=== PATIENT | male | born 1960 | race African-American/Black ===

== ENCOUNTER 2016-09-22 14:47 | Inpatient (IN) ==
[2016-09-22] MEDS ORDERED: GLUCAGON 1 MG VIAL IM PRN (17:12)
[2016-09-22] MEDS ORDERED: DEXTROSE 50% 25 GM/50 ML VIAL IV PRN (17:12)
[2016-09-22] MEDS ORDERED: PIPERACILLIN/TAZOBACTAM 3,375 MG in SODIUM CHLORIDE 0.9% 100 ML IV SCH (17:30)
[2016-09-22] MEDS: PIPERACILLIN/TAZOBACTAM 3,375 MG in SODIUM CHLORIDE 0.9% 100 ML IV SCH (18:11)
[2016-09-22] MEDS: INSULIN REGULAR 100 UNIT/ML SUBCUT SCH (21:17)
[2016-09-23] MEDS: PIPERACILLIN/TAZOBACTAM 3,375 MG in SODIUM CHLORIDE 0.9% 100 ML IV SCH ×3 (02:57→17:54)
[2016-09-23 06:43] LABS: Basophils % 0.4 % (0.0-0.8); Eosinophils # 0.1 10*3/uL (0.0-0.87); Eosinophils % 1.2 % (0.00-10.9); Hematocrit 29.1 VOL% (42.0-52.0); Hemoglobin 9.3 GM/DL (14.0-18.0); Immature Granulocytes % 0.5 %; Immature Granulocytes Absolute 0.04 #; Lymphocytes # 1.1 10*3/uL (1.4-4.0); Lymphocytes % 14.7 % (21.2-54.2); Mean Corpuscular Hemoglobin 27 PG (27-34); Mean Corpuscular Volume 83.4 FL (87-102); Mean Platelet Volume 8.7 FL (9.6-12.0); Monocytes # 0.8 10*3/uL (0.11-0.8); Monocytes % 10.7 % (1.7-12.7); Neutrophils # 5.3 10*3/uL (1.4-7.4); Neutrophils % 72.5 % (38.7-73.9); Platelet Count 228 T/CUMM (130-400); Red Blood Count 3.49 MC/CUMM (3.8-5.5); Red Cell Distribution Width 13.1 % (9.3-17.3); White Blood Count 7.4 T/CUMM (4-12)
[2016-09-23 06:51] LABS: Hypochromasia 1+
[2016-09-23 07:46] LABS: Albumin 2.7 G/DL (3.4-5.0); Bilirubin,Total 0.8 MG/DL (0.2-1.0); Calcium 8.1 MG/DL (8.5-10.1); Potassium 4.4 MMOL/L (3.5-5.1); Total Protein 6.9 G/DL (6.4-8.3)
--- NOTE | 2016-09-23 07:53 | EKG Report ---
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
[2016-09-23] MEDS: INSULIN REGULAR 100 UNIT/ML SUBCUT SCH ×3 (09:47→18:07)
--- NOTE | 2016-09-23 09:47 | General Surgery Progress Note ---
Assessment and Plan - Time spent with patient Time spent with patient: Less than 30 minutes (1) Chronic toe ulcer Status: Acute Assessment and plan: This toe appears to be nonsalvageable. We have plans for amputation this is delayed this morning because of new onset atrial fibrillation with a rapid ventricular response. We'll consult cardiology. Current Visit: Yes Qualifiers: Laterality: unspecified laterality Non-pressure ulcer stage: with fat layer exposed Qualified Code(s): L97.502 - Non-pressure chronic ulcer of other part of unspecified foot with fat layer exposed (2) Atrial flutter by electrocardiogram Status: Acute Assessment and plan: This significance of this is unclear and the patient appears asymptomatic. We will consult cardiology. We will delay his surgery this morning. I will be out of town but I discussed this case with Dr. Bond who is covering for me this weekend and if he is cleared from a cardiology standpoint he can proceed on with amputation. This was discussed with the family as well. Current Visit: Yes Subjective Patient reports: Present: feels better, afebrile. Absent: still having pain, nausea, vomiting Exam - Constitutional Vitals: Period Temp Pulse Resp BP Sys/Mcneil Pulse Ox Last 24 Hr 98.1 F-100.8 F 102-122 16-20 132-153/76-91 93-98 General appearance: no acute distress - Head Head exam: Present: normocephalic - Eye Eye exam: Absent: scleral icterus - Respiratory Respiratory exam: Absent: accessory muscle use - Extremities Exam Extremities exam: Present: other (his toe is unchanged. There is no signs of cellulitis in his foot.). Absent: edema Results - Labs CBC & BMP: 09/23/16 06:14 09/23/16 06:14 Lab Results: I have reviewed the past 24 hour labs Quality Measures - VTE Contraindication to Mechanical VTE Prophylaxis: Local Inflammation
[2016-09-23] MEDS ORDERED: ALBUTEROL 2.5 MG/3 ML NEB RESP TX PRN (11:11)
[2016-09-23] MEDS ORDERED: ONDANSETRON 4 MG/2 ML VIAL IV PRN (11:16)
[2016-09-23] MEDS: amLODIPine 10 MG TABLET PO SCH (12:51)
[2016-09-23] MEDS: SODIUM CHLORIDE 0.9% 1,000 ML IV SCH (13:50)
[2016-09-23] MEDS: CYCLOBENZAPRINE 10 MG TABLET PO SCH ×2 (14:13→20:56)
[2016-09-23] MEDS ORDERED: GLUCAGON 1 MG VIAL IM PRN (14:24)
[2016-09-23] MEDS ORDERED: DEXTROSE 50% 25 GM/50 ML VIAL IV PRN (14:24)
[2016-09-23] MEDS ORDERED: ENOXAPARIN 30 MG/0.3 ML SYRINGE SUBCUT STA (14:24)
[2016-09-23] MEDS: CARVEDILOL 3.125 MG TABLET PO SCH ×2 (14:34→20:56)
--- NOTE | 2016-09-23 15:07 | Cardiology Consult Note ---
Malik Burton April, RN, am scribing for, and in the presence of, Richard Rowland MD 15:03. Assessment and Plan - Time spent with patient Time spent with patient: Greater than 30 minutes (Due to assessment, planning, documentation, medication review) (1) Atrial flutter by electrocardiogram Status: Acute Current Visit: Yes (2) Hypertension Status: Chronic Assessment and plan: 1. 56-year-old overweight BM with hypertension, dyslipidemia, IDDM, status post left BKA remotely, now with nonhealing right foot ulcer and fever associated with secondary mild sinus tachycardia; he is plan for toe amputation this morning which is delayed due to his abnormal EKG. 2. EKG was read as atrial flutter by the computer; it is really mild sinus tachycardia only 3. Recommend changing to high-intensity statin therapy given his PAD history 4. No further recommendations, as he has no cardiac history, does not seem to have angina or heart failure symptoms 5. We'll sign off, please call if needed prior to discharge Current Visit: Yes (3) IDDM (insulin dependent diabetes mellitus) Status: Chronic Current Visit: Yes (4) Dyslipidemia Status: Chronic Current Visit: Yes (5) GERD (gastroesophageal reflux disease) Status: Chronic Current Visit: Yes (6) Chronic toe ulcer Status: Acute Current Visit: Yes Qualifiers: Laterality: unspecified laterality Non-pressure ulcer stage: with fat layer exposed Qualified Code(s): L97.502 - Non-pressure chronic ulcer of other part of unspecified foot with fat layer exposed History of Present Illness - Data of Consult Consult date: 09/23/16 Requesting Physician: Shelton Garcia Jr. - Consult Narrative Reason for consult: Atrial flutter/Tachycardia with RVR History of present illness: Mr. 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 He has a history of IDDM, hypertension, dyslipidemia, and GERD. Surgical history includes left BKA and a right thigh. Family history includes sister with diabetes and hypertension, mother with diabetes and Alzheimer's, and father with lung cancer. He reports he is a lifetime non-smoker. Mr. Wayne has had an ulcer to his right great toe that has been treated by wound care. He tells me they released him 3 weeks ago and he did some yard work and since then it has gotten progressively worse. He was admitted today for amputation of the right big toe, but EKG revealed atrial flutter/ tachycardia with RVR with a rate of 108. Surgery was canceled and cardiology was asked to evaluate. He denies any chest pain, shortness of breath, palpitations, or dizziness. Except for problems related to his toes, he reports he has been in his usual state of health with no complaints. He is not aware of having any rhythm problems in the past. He is not sure if he ever had an EKG, he said he possibly had one several years ago but is not sure where it was done. His blood pressures been up slightly, the most recent being 141/90. His potassium is 4.4, magnesium has not been checked so we will check. Creatinine is elevated at 1.4. He is not aware of having any bleeding problems , but he does tell me that he occasionally has bright red blood in his stool. CC: Kaushik Garcia III., - Home Medications and Allergies Home Medications: Home Medications Medication Instructions Recorded Confirmed Type Albuterol Sulfate [Ventolin HFA] 2 puff INH Q4H PRN 09/22/16 09/22/16 History Aspirin [Aspirin EC] 81 mg PO DAILY 09/22/16 09/22/16 History Cyclobenzaprine [Flexeril] 10 mg PO BID 09/22/16 09/22/16 History Esomeprazole Magnesium [Nexium] 20 mg PO DAILY 09/22/16 09/22/16 History Gabapentin 300 mg PO TID 09/22/16 09/22/16 History Losartan/Hydrochlorothiazide 1 each PO DAILY 09/22/16 09/22/16 History [Losartan-Hctz 100-12.5 mg Tab] Lovastatin 10 mg PO DAILY 09/22/16 09/22/16 History Metformin HCl 1,000 mg PO BID 09/22/16 09/22/16 History Zolpidem [Ambien] 5 mg PO BEDTIME 09/22/16 09/22/16 History amLODIPine [Norvasc] 10 mg PO DAILY 09/22/16 09/22/16 History glipiZIDE [Glipizide] 10 mg PO BID 09/22/16 09/22/16 History Allergies/Adverse Reactions: Allergies Allergy/AdvReac Type Severity Reaction Status Date / Time iodine Allergy Intermediate RASH Verified 09/22/16 16:49 - Constitutional Constitutional: Present: as per HPI - EENT Eyes: Present: blurry vision, loss of vision Ears: Absent: decreased hearing, tinnitus Nose, mouth and throat: Present: headache(s). Absent: dysphagia, epistaxis, neck pain, sore throat - Cardiovascular Cardiovascular: Present: edema. Absent: chest pain at rest, chest pain with activity, diaphoresis, dyspnea, dyspnea on exertion, radiating jaw, neck or arm pain, lightheadedness, orthopnea, palpitations - Respiratory Respiratory: Absent: cough, dyspnea, hemoptysis, dyspnea on exertion, wheezing - Gastrointestinal Gastrointestinal: Present: constipation, hematochezia. Absent: abdominal pain, diarrhea, hematemesis, melena, nausea, vomiting - Genitourinary Genitourinary: Absent: dysuria, hematuria - Musculoskeletal Musculoskeletal: Present: back pain, limited range of motion, muscle weakness - Neurological Neurological: Present: abnormal gait, headache(s). Absent: abnormal speech, confusion, dizziness, frequent falls, syncope - Psychiatric Psychiatric: Absent: anxiety, depression - Endocrine Endocrine: Absent: fatigue - Hematologic/Lymphatic Hematologic/Lymphatic: Absent: easy bleeding, easy bruising Medical,Surgical,& Family Hx - Medical History Cardio: History of: Hypertension Neurology: History of: Peripheral Neuropathy HEENT: History of: Eye Problem (Ulcers to eyes at times) Endocrine: History of: Diabetes Mellitus (IDDM) Respiratory: History of: Asthma Gastrointestinal: History of: GERD Musculoskeletal: History of: Amputation (Lt BKA), Musculoskeletal Problems ( Chronic Back Pain) - Surgical History Additional Surgical History: Left BKA and surgery to right thigh - Family History Family History: Reports;: Family Cancer (Father with lung cancer), Family Diabetes (Mother and sister), Family Hypertension (Sister) - Social History Smoking Status: Never smoker Have you smoked in the last 12 months: No Frequency of Alcohol Use: None Type of Drug Use: None Lives With:: Alone Functional capacity: independent ambulation (Uses a prosthesis for his left BKA) Physical Examination Vital Signs Temp Pulse Resp BP Pulse Ox 100.8 F H 122 H 16 153/91 98 09/22/16 16:30 09/22/16 16:30 09/22/16 16:30 09/22/16 16:30 09/22/16 16:30 General: Present: Appears Well, No Apparent Distress HEENT: Present: PERRL, Mucus Membranes Moist Neck: Present: Supple Neck, Midline Trachea, No Bruit Cardiac: Present: Irregularly Regular, S1/S2, Tachycardia Lungs: Present: Normal Breath Sounds, No Wheeze, Rales, Rhonchi. Absent: Decreased Breath Sounds, Oxygen Neuro: Absent: Resting Tremor, Essential Tremor Abdomen: Present: Soft, Active Bowel Sounds, Non-Tender. Absent: Distended Musculoskeletal: Present: Decreased Range of Motion Extremities: Present: Normal Upper Extr. Pulses, Edema (Right lower extremity), Other (Left BKA, right foot is bandaged). Absent: Normal Gait Result/EKG - Labs CBC & BMP: 09/23/16 06:14 09/23/16 06:14 Lab Results: I have reviewed the past 24 hour labs Labs: Laboratory Results - last 24 hr 09/22/16 09/22/16 09/23/16 17:39 20:09 06:14 WBC 7.4 RBC 3.49 L Hgb 9.3 L Hct 29.1 L MCV 83.4 L MCH 27 MCHC 32.0 RDW 13.1 Plt Count 228 MPV 8.7 L Neut % (Auto) 72.5 Lymph % (Auto) 14.7 L [place] % (Auto) 10.7 Eos % (Auto) 1.2 Baso % (Auto) 0.4 Neut # (Auto) 5.3 Lymph # (Auto) 1.1 L [place] # (Auto) 0.8 Eos # (Auto) 0.1 Baso # (Auto) 0.0 Immature Gran % 0.5 Nucleated RBC % 0.0 Immature Gran # 0.04 Nucleated RBCs # 0.00 Hypochromasia 1+ Sodium Potassium Chloride Carbon Dioxide Anion Gap BUN Creatinine GFR Calculation BUN/Creatinine Ratio Glucose POC Glucose 170 H 201 H Calculated Osmolality Calcium Total Bilirubin AST ALT Alkaline Phosphatase Total Protein Albumin Globulin Albumin/Globulin Ratio 09/23/16 09/23/16 06:14 06:56 WBC RBC Hgb Hct MCV MCH MCHC RDW Plt Count MPV Neut % (Auto) Lymph % (Auto) [place] % (Auto) Eos % (Auto) Baso % (Auto) Neut # (Auto) Lymph # (Auto) [place] # (Auto) Eos # (Auto) Baso # (Auto) Immature Gran % Nucleated RBC % Immature Gran # Nucleated RBCs # Hypochromasia Sodium 136 Potassium 4.4 Chloride 101 Carbon Dioxide 26 Anion Gap 13.4 BUN 26 H Creatinine 1.40 H GFR Calculation 92 BUN/Creatinine Ratio 18.00 Glucose 225 H POC Glucose 234 H Calculated Osmolality 283.0 Calcium 8.1 L Total Bilirubin 0.80 AST 7 ALT 11 L Alkaline Phosphatase 67 Total Protein 6.9 Albumin 2.7 L Globulin 4.2 H Albumin/Globulin Ratio 0.6 L Quality Measures - VTE Contraindication to Mechanical VTE Prophylaxis: Local Inflammation IJanett Randall Scott, MD, personally performed the services described in this documentation, ascribed by Tianna Gan RN in my presence, and it is both accurate and complete 507 .
--- NOTE | 2016-09-23 15:27 | Event Note ---
Patient is antibiotic day #2 on Zosyn for right great toe infection. Patient's procedure was delayed due to concern for possible A. fib. He has been seen by cardiology who determined the patient simply had sinus tachycardia likely reflects with febrile illness. No evidence throughout the day the patient has no complaints at this time. Blood glucose throughout the day 200s T-max 100.9. Tachycardic 101 15 throughout the day; otherwise vital signs stable HEENT atraumatic normocephalic Lungs clear to auscultation bilaterally Heart borderline tachycardic with regular rhythm Abdomen obese, soft and nontender with bowel sounds present. Extremity exam left BKA noted. Right lower extremity with mild edema of the forefoot with gangrenous appearing great toe with associated malodor. Dorsalis pedis pulses are palpable. Sensation is diminished in the foot. Assessment plan 1. Right gangrenous great toe; we will plan to proceed in the morning with a dictation with Dr. Bond. Per cardiology, patient is not advanced risk for cardiac consultations perioperatively. The risks of the procedure were reviewed again with the patient as family were present. We will repeat labs prior to proceeding the morning. 2. Uncontrolled insulin-dependent diabetes mellitus: Upon admission was not disclosed the patient was on Lantus 90 units nightly. He has not received that at this time. We will continue to hold as he will be n.p.o. after midnight for surgery tomorrow we will need to restart put postoperatively. We will change his insulin dosing to every 6 and increase to moderate dose sliding scale. He will need tighter glycemic control to improve healing capacity. 3. Elevated creatinine: No records available to review previous lab. Acute kidney injury versus CKD. We will monitor volume status and renal function as well as renally dose medications. Repeat BMP in a.m. Monitor I's and O's. 4. H/o HTN: currently controlled. We have held ARB and HCTZ at this time with concern for MADELAINE. Monitor and restart as appropriate. 5. GI ppx: PPI daily. 6. DVT ppx: lovenox 30mg IM administered today. Restart when appropriate p/o. 7. Dispo: anticipate d/c home with H/H services. Pt will likely require PT with contralateral prosthesis for gait training with proprioception changes in the absence of his right great toe.
[2016-09-23] MEDS: GABAPENTIN 300 MG CAPSULE PO SCH ×2 (17:55→20:56)
[2016-09-23] MEDS: glipiZIDE 10 MG TABLET PO SCH (20:56)
[2016-09-24] MEDS: INSULIN REGULAR 100 UNIT/ML SUBCUT SCH ×4 (01:02→17:56)
[2016-09-24] MEDS: PIPERACILLIN/TAZOBACTAM 3,375 MG in SODIUM CHLORIDE 0.9% 100 ML IV SCH ×3 (01:03→17:57)
[2016-09-24 02:50] LABS: Basophils % 0.1 % (0.0-0.8); Eosinophils # 0.1 10*3/uL (0.0-0.87); Hematocrit 28.9 VOL% (42.0-52.0); Hemoglobin 9.1 GM/DL (14.0-18.0); Immature Granulocytes % 0.4 %; Immature Granulocytes Absolute 0.03 #; Lymphocytes # 1.7 10*3/uL (1.4-4.0); Lymphocytes % 24.3 % (21.2-54.2); Mean Corpuscular HGB Conc 31.5 GM/DL (32-36); Mean Corpuscular Hemoglobin 26 PG (27-34); Mean Corpuscular Volume 83.8 FL (87-102); Monocytes # 0.8 10*3/uL (0.11-0.8); Monocytes % 10.7 % (1.7-12.7); Neutrophils # 4.4 10*3/uL (1.4-7.4); Neutrophils % 62.5 % (38.7-73.9); Platelet Count 203 T/CUMM (130-400); Red Blood Count 3.45 MC/CUMM (3.8-5.5); White Blood Count 7.1 T/CUMM (4-12)
[2016-09-24 03:13] LABS: Calcium 7.7 MG/DL (8.5-10.1); Magnesium 1.7 MG/DL (1.8-2.4); Potassium 4.1 MMOL/L (3.5-5.1)
[2016-09-24] MEDS: SODIUM CHLORIDE 0.9% 1,000 ML IV SCH ×2 (06:54→15:15)
--- NOTE | 2016-09-24 08:01 | Operative Note ---
Date of procedure: 09/24/16 Pre-op diagnosis: Right great toe wet gangrene Post-op diagnosis: same Procedure: Preoperative diagnosis Right great toe wet gangrene Postoperative diagnosis Same Procedures performed Right great toe toe ray amputation Findings Wet gangrene of right great toe with healthy tissues at the base of the metatarsal head. Wound was closed partially and left packed with iodoform Complications None apparent Specimen Right great toe Blood loss 10 mL Indications This patient was admitted with right great toe wet gangrene. I discussed the procedure in detail with the patient and he was cleared by cardiology. The risks, benefits, and alternatives of the operation were discussed with the patient and family. The risk of phantom pain and need for higher amputation were discussed in detail and elected to proceed. Their questions were answered. Description of procedure Patient was taken to the operating room and transferred to the operating table in the supine position. The right leg was prepped with water-based chlorhexidine and draped sterilely. Preoperative antibiotics were administered and timeout was performed. Local anesthetic was administered around the right great toe. An elliptical skin incision was then made with a 15 blade scalpel and the toe was amputated at the metatarsal phalangeal joint. A rongeur was used to debride the bone back past the capsule of the metatarsal head. There was good bleeding at the skin edges and at the edges of the wound. The metatarsal head appeared healthy. The wound was closed partially and packed with iodoform packing gauze. Nylon sutures were used to close the majority of the wound. The foot was dressed with dry gauze dressing between the toes, cast padding, and Coban. The patient was awakened from anesthesia and transferred to recovery. Postoperative plan Continue wound care and antibiotics Follow-up cultures Implants: iodoform Anesthesia: OBDULIOA Surgeon / Physician: Juan Jose Bond Estimated blood loss: minimal Specimens: other (right great toe) Condition: stable Disposition: PACU Results - Labs CBC & BMP: 09/24/16 02:08 09/24/16 02:08 Discharge Plan - Discharge Medications No Action Albuterol Sulfate [Ventolin HFA] 2 puff INH Q4H PRN PRN Reason: Shortness Of Breath/Wheezing glipiZIDE [Glipizide] 10 mg PO BID Lovastatin 10 mg PO DAILY Esomeprazole Magnesium [Nexium] 20 mg PO DAILY Cyclobenzaprine [Flexeril] 10 mg PO BID Losartan/Hydrochlorothiazide [Losartan-Hctz 100-12.5 mg Tab] 1 each PO DAILY Zolpidem [Ambien] 5 mg PO BEDTIME Gabapentin 300 mg PO TID Aspirin [Aspirin EC] 81 mg PO DAILY Metformin HCl 1,000 mg PO BID amLODIPine [Norvasc] 10 mg PO DAILY - Follow Up or Referral - Forms/Instructions
[2016-09-24] MEDS ORDERED: ONDANSETRON 4 MG/2 ML VIAL IV PRN (08:28)
[2016-09-24] MEDS ORDERED: HYDROmorphone 2 MG/1 ML VIAL IV PRN (08:28)
[2016-09-24] MEDS ORDERED: LACTATED RINGERS 1,000 ML IV SCH (08:30)
[2016-09-24] MEDS ORDERED: NON-FORMULARY MEDICATION (Losartan/Hydrochlorothiazide [Losartan-Hctz 100-12.5 Mg Tab] 1 E PO SCH (09:00)
--- NOTE | 2016-09-24 09:12 | Anesthesia Post-Op ---
Anesthesia Post OP - Post Ansesthetic Evaluation Patient seen in post op: Yes Resp: within normal limits CV: within normal limits Mental: within normal limits Temp: within normal limits Ezgr-Sv-Ekyrorugi: within normal limits Nausea and Vomiting: within normal limits Pain: within normal limits
[2016-09-24] MEDS: ASPIRIN EC 81 MG TABLET PO SCH (09:47)
[2016-09-24] MEDS: CARVEDILOL 3.125 MG TABLET PO SCH ×2 (09:47→21:33)
[2016-09-24] MEDS: CYCLOBENZAPRINE 10 MG TABLET PO SCH ×2 (09:47→21:33)
[2016-09-24] MEDS: PANTOPRAZOLE 40 MG TABLET PO SCH (09:47)
[2016-09-24] MEDS: GABAPENTIN 300 MG CAPSULE PO SCH ×3 (09:47→21:44)
[2016-09-24] MEDS: amLODIPine 10 MG TABLET PO SCH (09:47)
[2016-09-24] MEDS: glipiZIDE 10 MG TABLET PO SCH ×2 (09:47→21:33)
[2016-09-24] MEDS: LOVASTATIN 20 MG TABLET PO SCH (09:47)
[2016-09-25] MEDS: INSULIN REGULAR 100 UNIT/ML SUBCUT SCH ×4 (01:09→17:54)
[2016-09-25] MEDS: PIPERACILLIN/TAZOBACTAM 3,375 MG in SODIUM CHLORIDE 0.9% 100 ML IV SCH ×3 (02:39→17:46)
[2016-09-25] MEDS: ASPIRIN EC 81 MG TABLET PO SCH (08:23)
[2016-09-25] MEDS: PANTOPRAZOLE 40 MG TABLET PO SCH (08:23)
[2016-09-25] MEDS: glipiZIDE 10 MG TABLET PO SCH ×2 (08:23→22:26)
[2016-09-25] MEDS: CYCLOBENZAPRINE 10 MG TABLET PO SCH ×2 (08:23→22:26)
[2016-09-25] MEDS: CARVEDILOL 3.125 MG TABLET PO SCH ×2 (08:23→22:26)
[2016-09-25] MEDS: amLODIPine 10 MG TABLET PO SCH (08:23)
[2016-09-25] MEDS: GABAPENTIN 300 MG CAPSULE PO SCH ×3 (08:23→22:26)
[2016-09-25] MEDS: LOVASTATIN 20 MG TABLET PO SCH (08:24)
[2016-09-25] MEDS: SODIUM CHLORIDE 0.9% 1,000 ML IV SCH (12:58)
--- NOTE | 2016-09-25 13:31 | Event Note ---
General Surgery Progress Note Chief complaint This patient is a 56-year-old man admitted with wet gangrene of the right great toe treated with great toe ray amputation on 09/24/2016 Interval history No events overnight. Pain is well controlled. Afebrile. Physical exam Afebrile with normal vital signs Right toe wound is clean with no evidence of infection Labs Glucoses are in the 200-300 range Imaging None Assessment and plan Continue antibiotics and wound care Plan for discharge home tomorrow on p.o. antibiotics Restart all home diabetes medicines
[2016-09-25] MEDS ORDERED: PANTOPRAZOLE 40 MG TABLET PO SCH (13:45)
[2016-09-25] MEDS: metFORMIN 500 MG TABLET PO SCH ×2 (14:06→22:25)
[2016-09-25] MEDS ORDERED: ZALEPLON 5 MG CAPSULE PO SCH (21:00)
[2016-09-26] MEDS: INSULIN REGULAR 100 UNIT/ML SUBCUT SCH ×3 (00:50→11:28)
[2016-09-26] MEDS: PIPERACILLIN/TAZOBACTAM 3,375 MG in SODIUM CHLORIDE 0.9% 100 ML IV SCH ×2 (02:24→09:13)
[2016-09-26] MEDS: SODIUM CHLORIDE 0.9% 1,000 ML IV SCH ×3 (03:51→08:44)
[2016-09-26] MEDS: LOVASTATIN 20 MG TABLET PO SCH (08:37)
[2016-09-26] MEDS: metFORMIN 500 MG TABLET PO SCH (08:37)
[2016-09-26] MEDS: PANTOPRAZOLE 40 MG TABLET PO SCH (08:37)
[2016-09-26] MEDS: ASPIRIN EC 81 MG TABLET PO SCH (08:37)
[2016-09-26] MEDS: glipiZIDE 10 MG TABLET PO SCH (08:37)
[2016-09-26] MEDS: amLODIPine 10 MG TABLET PO SCH (08:37)
[2016-09-26] MEDS: CARVEDILOL 3.125 MG TABLET PO SCH (08:37)
[2016-09-26] MEDS: GABAPENTIN 300 MG CAPSULE PO SCH (08:37)
[2016-09-26] MEDS: CYCLOBENZAPRINE 10 MG TABLET PO SCH (08:37)
--- NOTE | 2016-09-26 10:59 | Discharge Summary ---
Hospital Course - Hospital Course Hospital Course: Patient is a 56-year-old male with poorly controlled diabetes mellitus who underwent right great toe amputation for wet gangrene. Preoperatively, there was concern for atrial fibrillation. Cardiology consultation revealed the patient was actually in sinus tachycardia. He added on O3.125 twice daily. Patient responded well. Postoperatively, he responded well to antibiotics his pain was controlled. He demonstrated good mobility in his room. He is tolerating oral intake without difficulty voiding without difficulty passing flatus. He has chronic constipation with a bowel movement every 5-6 days with last bowel movement 3-4 days ago. No abdominal discomfort and good bowel sounds. His blood glucose was significantly elevated originally, but the patient was not receiving his Lantus. Once on his home medications blood glucose levels were more reasonably controlled. Diagnosis - Discharge Diagnosis (1) Diabetic wet gangrene of the foot Status: Acute (2) IDDM (insulin dependent diabetes mellitus) Status: Chronic Specialty Discharge - Follow Up or Referrals Follow up with: Juan Jose Bond MD [Physician] - 10/03/16 2:30 pm Discharge Plan - Discharge Data Disposition: Home Health Service Condition at Discharge: Stable Discharge Diet: diabetic diet Activity: other (NWB thru right forefoot. Wear p/o shoe for transfers and short distances for ADLs only. ) Hygiene: may shower, keep area(s) dry Driving: other (No driving while taking narcotics.) Contact your physician if you experience:: fever over 101, Difficulty voiding, Redness or swelling, Nausea/Vomiting, Shortness of breath, Bleeding (or wound drainage), pain uncontrolled by pain medications Wound / Dressing Care Instructions: Wound care BID. Clean with saline. Apply adaptic with 4x4 dressings, cast padding and wrap with coban. - Discharge Medications New Polyethylene Glycol Powder [Miralax] 17 gm PO DAILY Sulfameth/Trimeth 800-160 Tab [Bactrim DS Tab] 1 tablet PO BID #14 tablet Carvedilol [Coreg] 3.125 mg PO BID #60 tablet HYDROcodone/ACETAMIN 7.5-325 [[place] 7.5-325] 1 tablet PO Q4H PRN #30 tablet PRN Reason: Pain Moderate To Severe (4-10) Continue Albuterol Sulfate [Ventolin HFA] 2 puff INH Q4H PRN PRN Reason: Shortness Of Breath/Wheezing glipiZIDE [Glipizide] 10 mg PO BID Lovastatin 10 mg PO DAILY Esomeprazole Magnesium [Nexium] 20 mg PO DAILY Cyclobenzaprine [Flexeril] 10 mg PO BID Losartan/Hydrochlorothiazide [Losartan-Hctz 100-12.5 mg Tab] 1 each PO DAILY Zolpidem [Ambien] 5 mg PO BEDTIME Gabapentin 300 mg PO TID Aspirin [Aspirin EC] 81 mg PO DAILY Metformin HCl 1,000 mg PO BID amLODIPine [Norvasc] 10 mg PO DAILY - Follow Up or Referral Follow Up: Juan Jose Bond MD [Physician] - 10/03/16 2:30 pm - Forms/Instructions Instructions: Toe Amputation (DC), Diabetic Foot Care (GEN), Meal Planning with Diabetes Exchanges (DC) Additional Discharge Instructions: F/u PCP for hospital f/u 7-10d. Home health : consult PT for proprioception therapy and gait training after 2 wk of wound healing if ok with Dr. Bond based on wound healing status. Exam - Constitutional Vitals: Period Temp Pulse Resp BP Sys/Mcneil Pulse Ox Last 24 Hr 97.7 F-98.8 F 70-95 18-20 114-147/61-89 90-98 General appearance: normal weight, no acute distress - Respiratory Respiratory exam: Present: clear to auscultation bilaterally - Cardiovascular Cardiovascular exam: Present: regular rate and rhythm - GI/Abdominal GI/Abdominal exam: Present: normal bowel sounds, soft. Absent: distended, tenderness - Extremities Exam Extremities exam: Present: edema, other (Great toe surgical incision is clean and dry with small area medially open approximately 6 mm in diameter with healthy, granulation tissue present. No surrounding erythema or edema residual. ). Absent: calf tenderness - Neurological Exam Neurological exam: Present: alert, oriented X3 - Skin Skin exam: Present: normal color, warm Discharge Results Procedures and tests throughout hospitalization: 1. Right great toe amputation Labs on day of discharge: Labs from last 24 hours 09/26/16 09/26/16 09/25/16 05:29 00:42 17:45 POC Glucose 193 H 230 H 243 H 09/25/16 11:54 POC Glucose 218 H DS: Provider Date of admission: 09/22/16 16:17 Primary care physician: . No PCP Attending physician on admission: Bill Radha, III., Consults: 09/22/16 16:58 Consult to Case Mgmt/Social Srvs [CONS] Routine Reason for Case Mgmt/Social Srvs: Discharge Planning Home Health Rehab Consult Comment: SN for wound care and PT for home rehab when D/C'd home. Discharging clinician: Cara Ventura PA-C
[2016-09-26] MEDS ORDERED: POLYETHYLENE GLYCOL POWDER 17 GM PACK PO SCH (11:00)
[2016-09-26 11:46] VITALS: BP 149/89
--- NOTE | 2016-09-27 11:47 | Pathology Report from [facility] ---
ACCESSION # : [id number] PATIENT NAME : Alex Wayne ORDERING DR : KELLIE TELLEZ III, MD CLINICAL HX: RT gangrenous great toe POST-OP DX: Same SPECIMEN INFO: RT great toe GROSS DESCRIPTION: Received in formalin labeled "NORY WAYNE" is a gangrenous great toe and distal metatarsal measuring 7.0 x 4.0 x 3.2 cm. Pleating Machine Operator section is submitted in one cassette. DIAGNOSIS FOR ALEX WAYNE: RIGHT GREAT TOE, AMPUTATION: Gangrene. SERVICE DATE: 09/25/2016 REPORT DATE: 09/27/2016 PATHOLOGIST: Bruce Martínez M.D. [facility]
== END 2016-09-26 12:40 | disposition home health service (06) | DRG 617 ==
LOC: N.3E 16:17
PROVIDERS: ADMIT Surgery; ATTEND Surgery